=== PATIENT | male | born 1970 | race Caucasian/White ===

== ENCOUNTER → 2019-06-04 | Outpatient (CLI) | payer BC ==
[~2019-06-04] MED LIST: CRUTCH3 USE; Keflex500 MG PO; NAPR550 PO; Norco 5-325 Ta1 EACH PO; OXYACE5T PO; RXNAPNA550 PO
== END ==
LOC: LAB SHORT 16:43 → LAB 16:43
DX: J34.0 Abscess, furuncle and carbuncle of nose (principal)
CPT/HCPCS: 87070; 87077; 87147; 87186

== ENCOUNTER 2019-07-29 08:03 | Day surgery (SDC) | payer BC ==
--- NOTE | 2019-07-29 09:05 | NUR ---
History, Chart, Medications and Allergies reviewed before start of procedure. Patient confirms NPO status and agrees with scheduled surgery. PT AMB RADIOLOGY DEPARTMENT. PT CHANGED INTO A GOWN. VS OBTAINED. IV PLACED IN RAC. PT AMB TO CT 1 FOR CTA. PT WITHOUT C/O AT THIS TIME.
== END 2019-07-29 22:55 | disposition home or self-care (01) ==
LOC: CT 08:03
DX: I25.10 Atherosclerotic heart disease of native coronary artery without angina pectoris (principal); I10 Essential (primary) hypertension; E78.5 Hyperlipidemia, unspecified; J45.909 Unspecified asthma, uncomplicated; E66.9 Obesity, unspecified; I87.2 Venous insufficiency (chronic) (peripheral); R00.1 Bradycardia, unspecified; Z87.891 Personal history of nicotine dependence
CPT/HCPCS: 75574; Q9967

== ENCOUNTER 2019-11-30 09:37 | Day surgery (SDC) | payer BC ==
[~2019-11-30] VITALS: Ht 188 cm; Wt 105.7 kg
[2019-11-30] MEDS ORDERED: ALBU3IS (10:19)
[2019-11-30] MEDS ORDERED: FLUO10 (10:20)
[2019-11-30] MEDS ORDERED: BUDE6HFA (10:20)
--- NOTE | 2019-11-30 10:45 | NUR ---
11/30/19 1045 Vickie Wilcox USED NEW YELLOW/RED PEDIATRIC SCOPE
== END 2019-11-30 11:39 | disposition home or self-care (01) ==
LOC: ORSCSDS 09:37
PROVIDERS: Internal Medicine Gastroenterology
PROC: 0DBK8ZX Excision of Ascending Colon, Via Natural or Artificial Opening Endoscopic, Diagnostic (ICD-10-PCS; principal; 2019-11-30 11:15)
PROC: 0DBL8ZX Excision of Transverse Colon, Via Natural or Artificial Opening Endoscopic, Diagnostic (ICD-10-PCS; principal; 2019-11-30 11:15)
DX: Z12.11 Encounter for screening for malignant neoplasm of colon (principal); D12.2 Benign neoplasm of ascending colon; D12.3 Benign neoplasm of transverse colon; K64.4 Residual hemorrhoidal skin tags; E78.00 Pure hypercholesterolemia, unspecified; I10 Essential (primary) hypertension; J45.909 Unspecified asthma, uncomplicated; F32.9 Major depressive disorder, single episode, unspecified; Z87.891 Personal history of nicotine dependence; Z79.899 Other long term (current) drug therapy
CPT/HCPCS: 88305; J2704; J7120

== ENCOUNTER → 2021-09-30 | Outpatient (CLI) | payer OTHER ==
[~2021-09-30] MED LIST changes: +ALBU3IS; +BUDE6HFA; +FLUO10
== END ==
LOC: LAB 08:30 → LAB SHORT 08:30
DX: J02.9 Acute pharyngitis, unspecified (principal)
CPT/HCPCS: 87081

== ENCOUNTER 2022-12-30 08:19 | Day surgery (SDC) | payer OTHER ==
[~2022-12-30] VITALS: Ht 188 cm; Wt 146.5 kg
[2022-12-30] MEDS ORDERED: AMLO10 PO (08:44)
[2022-12-30] MEDS ORDERED: Bystolic10 MG PO (08:44)
[2022-12-30] MEDS ORDERED: TAMS.4ER PO (08:44)
--- NOTE | 2022-12-30 10:16 | NUR ---
12/30/22 [facility]ALL 5MLS OF NORMAL SALINE MIXED WITH 5MLS OF LIDOCAINE 2% WITH EPI 1:100,000 TO CREATE A LOCAL SOLUTION OF LIDOCAINE 1% WITH EPI 1:200,000. 2MLS OF LOCAL SOLUTION INJECTED BY DR. SLAUGHTER BEFORE STERILE PREP.
--- NOTE | 2022-12-30 12:57 | NUR ---
12/30/22 Arnoldo Valderrama INITIALLY IN STEP DOWN, PT MAINTAINED 93-98% O2 SATS WITH BRIEF DROPS LOW 90%. PT DENIED SHORTNESS OF BREATH, DIZZINESS, OR OTHER SYMPTOMS OF HYPOXIA AND NONE WERE OBSERVED. PT WAS PROVIDED INCENTIVE SPIROMETERY AND O2 PROBE WAS SWITCHED FROM FINGER TO TOE AT 1200. PT MAINTAINED O2 SATURATION IN HIGH 90'S AND DID NOT DROP BELOW 94% AFTER THIS. PT REPORTED 3-4/10 PAIN THROUGHOUT HIS STAY IN STEP DOWN. HOWEVER, HE DESCRIBED THE PAIN TOLERABLE AND REFUSED MEDICATION.
== END 2022-12-30 12:45 | disposition home or self-care (01) ==
LOC: ORSCSDS 08:19
PROVIDERS: Otolaryngology
PROC: 09SL0ZZ Reposition Nasal Turbinate, Open Approach (ICD-10-PCS; principal; 2022-12-30 09:45)
PROC: 09BM0ZZ Excision of Nasal Septum, Open Approach (ICD-10-PCS; principal; 2022-12-30 09:45)
DX: J34.2 Deviated nasal septum (principal); J34.3 Hypertrophy of nasal turbinates; I10 Essential (primary) hypertension; J44.9 Chronic obstructive pulmonary disease, unspecified; Z87.891 Personal history of nicotine dependence; J45.909 Unspecified asthma, uncomplicated; Z79.899 Other long term (current) drug therapy; E66.01 Morbid (severe) obesity due to excess calories; Z68.41 Body mass index [BMI] 40.0-44.9, adult
CPT/HCPCS: J0171; J1100; J2250; J2405; J2704; J3010

== ENCOUNTER 2025-05-17 09:51 | Day surgery (SDC) | payer OTHER ==
[~2025-05-17] VITALS: Ht 188 cm; Wt 145.2 kg
[~2025-05-17 09:51] MED LIST changes: +AMLO10 PO; +Bystolic10 MG PO; +TAMS.4ER PO
[2025-05-17] MEDS ORDERED: Crestor40 MG (10:05)
[2025-05-17] MEDS ORDERED: FLUT1DIS2 (10:05)
[2025-05-17] MEDS ORDERED: [UNRECOGNIZED DRUG - OTHER] (10:06)
[2025-05-17] MEDS ORDERED: FISH OIL 1,0001 EA10 (10:06)
[2025-05-17 12:10] VITALS: BP 137/84
== END 2025-05-17 12:30 | disposition home or self-care (01) ==
LOC: ORSCSDS 09:51
PROVIDERS: Internal Medicine Gastroenterology
PROC: 0DBL8ZX Excision of Transverse Colon, Via Natural or Artificial Opening Endoscopic, Diagnostic (ICD-10-PCS; principal; 2025-05-17 11:30)
PROC: 0DBM8ZX Excision of Descending Colon, Via Natural or Artificial Opening Endoscopic, Diagnostic (ICD-10-PCS; principal; 2025-05-17 11:30)
PROC: 0DBK8ZX Excision of Ascending Colon, Via Natural or Artificial Opening Endoscopic, Diagnostic (ICD-10-PCS; principal; 2025-05-17 11:30)
DX: Z12.11 Encounter for screening for malignant neoplasm of colon (principal); D12.2 Benign neoplasm of ascending colon; D12.3 Benign neoplasm of transverse colon; K63.5 Polyp of colon; J45.909 Unspecified asthma, uncomplicated; E66.9 Obesity, unspecified; Z68.41 Body mass index [BMI] 40.0-44.9, adult; Z86.0100 Personal history of colon polyps, unspecified
CPT/HCPCS: 88305; J2704; J7120

== ENCOUNTER 2025-10-12 11:56 | Emergency (ER) | payer OTHER ==
[~2025-10-12] VITALS: Ht 188 cm; Wt 151.9 kg
[~2025-10-12 11:56] MED LIST changes: +Crestor40 MG; +FISH OIL 1,0001 EA10; +FLUT1DIS2; +[UNRECOGNIZED DRUG - OTHER]
[2025-10-12 14:45] VITALS: BP 164/98
[2025-10-12] MEDS ORDERED: Keflex500 MG PO (15:03)
== END 2025-10-12 15:15 | disposition home or self-care (01) ==
LOC: ER 11:56
DX: L03.116 Cellulitis of left lower limb (principal); Z87.891 Personal history of nicotine dependence; E78.00 Pure hypercholesterolemia, unspecified
CPT/HCPCS: 93971; 99284-25